=== PATIENT | male | born 1965 | race African-American/Black ===

== ENCOUNTER 2017-08-04 12:27 | Inpatient (IN) ==
--- NOTE | 2017-08-04 13:11 | Emergency Department Note ---
IMahad Gwan, am scribing for, and in the presence of, Ike Rahman MD 12:41 . ILacey James D, MD, personally performed the services described in this documentation, ascribed by Ted Tobin in my presence, and it is both accurate and complete . Arrival - Arrival Chief Complaint: Shortness of Breath ED Nursing Triage Note: Brought in by EMS c/o SOB-onset this morning. Patient is supposed to be at dialysis now, but states that he "didnt feel up to going". Mode of Arrival: Stretcher Limitations: No Limitations Source: Patient, Old Records Reviewed, RN Notes Reviewed - History of Present Illness HPI Narrative: Patient is a 51 y/o male, with a hx of NIDDM, who presents to the ED via EMS with a c/o SOB with an onset this morning. Patient stated that today is his NML dialysis day but he did not comply because he "didn't feel up to going". He confirmed that he has been sticking to his diet and that he goes to dialysis in [place]. He denies any chest pain. No other problems/complaints reported in ED. Onset (ago): hour(s) Consistency: constant Severity: moderate Allergies/Adverse Reactions: Allergies Allergy/AdvReac Type Severity Reaction Status Date / Time atorvastatin [From Lipitor] Allergy Vomiting Verified 06/28/17 17:08 Home Medications: Home Medications Medication Instructions Recorded Confirmed Type Carvedilol 12.5 mg PO BID W/MEALS 06/28/17 08/04/17 History Clopidogrel Bisulfate [Clopidogrel] 75 mg PO QAM 06/28/17 08/04/17 History Ergocalciferol (Vitamin D2) 50,000 unit PO MOFR 06/28/17 08/04/17 History [Vitamin D2] Gabapentin 600 mg PO TID 06/28/17 08/04/17 History Hydrocodone/Acetaminophen [[place] 1 each PO BID 06/28/17 08/04/17 History 10-325 Tablet] Insulin Detemir [Levemir] 20 unit SUBCUT BEDTIME 06/28/17 08/04/17 History Magnesium Chloride [Slow Mag] 64 mg PO QAM 06/28/17 08/04/17 History Omeprazole 20 mg PO QAM 06/28/17 08/04/17 History Rosuvastatin Calcium 10 mg PO QAM 06/28/17 08/04/17 History Torsemide 10 mg PO QAM 06/28/17 08/04/17 History amLODIPine [Norvasc] 10 mg PO QAM 06/28/17 08/04/17 History Albuterol Sulfate [Ventolin HFA] 2 puffs INH Q4H PRN 08/04/17 08/04/17 History Furosemide 40 mg PO TID 08/04/17 08/04/17 History Review of System - Review of System 12 point system: reviewed and no additional remarkable complaints except as stated - Review of System Constitutional: Absent: chills, fever Eyes: Absent: discharge, pain Respiratory: Present: as per HPI, other (shortness of breathe). Absent: cough Gastrointestinal: Absent: abdominal pain, nausea, vomiting, diarrhea Medical,Surgical,& Family Hx - Medical History Cardio: History of: Hypertension Endocrine: History of: Diabetes Mellitus (NIDDM) Respiratory: History of: Asthma, COPD Renal: History of: Renal Failure Musculoskeletal: History of: Back/Neck Problems Other: Comment Only: Miscellaneous Medical Problems ("rods in neck and left leg") - Surgical History Cardiac Surgeries: Sugical HX of: Cardiac Catheterization (stents) Orthopedic Surgeries: Surgical HX of;: Orthopedic Surgery - Family History Family History: Reports;: Family Diabetes, Family Heart Disease Denies;: Family Stroke - Social History Smoking Status: Never smoker Frequency of Alcohol Use: None Type of Drug Use: None Exam Physical Examination: GENERAL: This is a ill-appearing male in no apparent distress. VITAL SIGNS: HEENT: Head is normocephalic and atraumatic. Pupils are equally round and reactive to light. Extraocular movement are intact. Oropharynx is benign with moist mucous membranes. NECK: Neck is soft and supple without tenderness. There are no masses. There is no lymphadenopathy. LUNGS: Lungs are clear to auscultation bilaterally. Chest rises symmetrically. There is no chest wall tenderness. CV: Heart is regular rate and rhythm without murmurs, rubs, or gallops. ABDOMEN: Abdomen is soft, non-tender to palpation. There are no abnormal masses palpated. There is no organomegaly. Bowel sounds are present and active. SKIN: Skin is warm and dry. No rash. EXTREMITIES: Patient has full range of motion without tenderness. There is no pedal edema. NEUROLOGIC: Awake, alert, and oriented x4. Cranial nerves II through XII are grossly intact. There are no motorsensory deficits. PSYCHIATRIC: Normal affect. Normal mood. Vital Signs: Vital Signs Temperature 97.0 F L 08/04/17 12:34 Pulse Rate 91 H 08/04/17 12:34 Respiratory Rate 18 08/04/17 12:40 Blood Pressure 120/79 08/04/17 12:34 O2 Sat by Pulse Oximetry 100 08/04/17 12:34 Course - Consultations Consultation #1: Discussed with hospitalist. Patient will be admitted to their service per Time: 14:07 Results - Labs CBC & BMP: 08/04/17 12:45 Lab Results: I have reviewed the patients labs - Diagnostic Findings Procedure: Chest x-ray: image reviewed by me (No infiltrates, no pleural effusions, dialysis catheter present with the tip in the superior vena cava.) Disposition Clinical Impression: End-stage renal disease on hemodialysis, Dyspnea, Acute GI bleeding, Diabetes mellitus Case discussed with: patient Disposition: Still a Patient Condition: Critical Time of Disposition: 14:07
--- NOTE | 2017-08-04 13:43 | XRay Report ---
XR chest 1V Indication: Dyspnea, end-stage renal disease Comparison: 28 June 2017 Findings: The heart and mediastinum are stable in size and configuration. Right internal jugular catheter has been placed and tip overlies right atrium. The pulmonary vascularity is normal in caliber. No lung infiltrates, effusions, pneumothorax or other abnormality is demonstrated. Impression: Catheter position appears within normal limits. No other abnormality seen. PROCEDURE INTERPRETED AT [facility] DEPARTMENT OF RADIOLOGY Final Report Signed by: Dr. Tommy Gu
[2017-08-04 14:00] LABS: Basophils % 0.3 % (0.0-0.8); Eosinophils # 0.3 10*3/uL (0.0-0.87); Eosinophils % 5.2 % (0.00-10.9); Immature Granulocytes % 0.7 %; Immature Granulocytes Absolute 0.04 #; Lymphocytes # 1.8 10*3/uL (1.4-4.0); Lymphocytes % 31.1 % (21.2-54.2); Mean Corpuscular HGB Conc 32.7 GM/DL (32-36); Mean Corpuscular Hemoglobin 28 PG (27-34); Mean Corpuscular Volume 85.1 FL (87-102); Mean Platelet Volume 11.4 FL (9.6-12.0); Monocytes # 0.6 10*3/uL (0.11-0.8); Neutrophils # 3.1 10*3/uL (1.4-7.4); Neutrophils % 52.7 % (38.7-73.9); Platelet Count 196 T/CUMM (130-400); Red Blood Count 1.94 MC/CUMM (3.8-5.5); Red Cell Distribution Width 14.6 % (9.3-17.3); White Blood Count 5.9 T/CUMM (4-12)
[2017-08-04 14:05] LABS: Hematocrit 16.5 VOL% (42.0-52.0); Hemoglobin 5.4 GM/DL (14.0-18.0)
[2017-08-04 14:23] LABS: Alanine Aminotransferase 11 U/L (16-61); Alkaline Phosphatase 83 U/L (45-117); Aspartate Amino Transferase 11 U/L (0-37); Bilirubin,Total < 0.39 MG/DL (0.2-1.0); Blood Urea Nitrogen 43 MG/DL (7-18); Calcium 7.6 MG/DL (8.5-10.1); Glucose 222 MG/DL (74-106); Osmolality,Calculated 290.8 MOS/KG (273-304); Potassium 4.2 MMOL/L (3.5-5.1); Sodium 137 MMOL/L (136-145); Total Protein 5.5 G/DL (6.4-8.3); Troponin I Only < 0.015 NG/ML (0.00-0.045)
--- NOTE | 2017-08-04 14:41 | Hospitalist History & Physical ---
<Val Parks - Last Filed: 08/04/17 14:23> Assessment and Plan - Time spent with patient Time spent with patient: Greater than 30 minutes (1) Acute GI bleeding Status: Acute Assessment and plan: 08/04/17 Admit Anemia: H&H 5.4 & 16.5: - Nephrology consult for dialysis and blood transfusion CRF w/Hemodialysis: hemodialysis (MWF) - missed dialysis today - nephrology consult for assistance with care. Melena: Consult GI: Patient of Dr Townsend - patient reports GI scope about a year ago and resulted of GI ulcer start Protonix Diabetes: start protocol for diabetic management COPD: PRN breathing treatments Will discuss with Dr Serra for further recommendations of care. Current Visit: Yes (2) End-stage renal disease on hemodialysis Status: Acute Current Visit: Yes (3) Anemia Status: Acute Current Visit: No (4) COPD (chronic obstructive pulmonary disease) Status: Acute Current Visit: No (5) Coronary artery disease Status: Acute Current Visit: No (6) Diabetes Status: Chronic Current Visit: No History of Present Illness Chief complaint: shortness of breath History of present illness: Mr. Mahmood is a 51 year old black male w/PMHx of HTN, DM, GERD, COPD, CAD( stents 2012), gastric ulcer presented to the ED for further evaluation of 2 days worsening shortness of breath, dark tarry stools and today hematemesis. He reports suppose to have regular dialysis today at [facility] but felt too short of breath to go to dialysis. He reports decreased in appetite for a couple of months. He denies chest pain, fever, or chills. IN ED: LABS: H&H 5.4 and 16.5. BNP 127, BUN & Creatinine 43 & 5.50 (CRF on hemodialysis), Glucose 222, Calcium 7.6. CXR: nothing acute. Patient denies smoking, alcohol use, or drug use. He does not take the Flu Vaccine. He ambulates without a walker or cane. PCP: Dr Porter ([place]) Renal: Dr Gutierrez Cardiology: Dr Dickerson GI: Dr Townsend After discussion with Dr Rahman in the ED and Dr Serra with Hospital Medicine, it was agreed to admit patient and consult nephrology for assistance with care. Home medications to be reviewed and reconciliation to follow. Home Medications Medication Instructions Recorded Confirmed Type Carvedilol 12.5 mg PO BID W/MEALS 06/28/17 08/04/17 History Clopidogrel Bisulfate [Clopidogrel] 75 mg PO QAM 06/28/17 08/04/17 History Ergocalciferol (Vitamin D2) 50,000 unit PO MOFR 06/28/17 08/04/17 History [Vitamin D2] Gabapentin 600 mg PO TID 06/28/17 08/04/17 History Hydrocodone/Acetaminophen [[place] 1 each PO BID 06/28/17 08/04/17 History 10-325 Tablet] Insulin Detemir [Levemir] 20 unit SUBCUT BEDTIME 06/28/17 08/04/17 History Magnesium Chloride [Slow Mag] 64 mg PO QAM 06/28/17 08/04/17 History Omeprazole 20 mg PO QAM 06/28/17 08/04/17 History Rosuvastatin Calcium 10 mg PO QAM 06/28/17 08/04/17 History Torsemide 10 mg PO QAM 06/28/17 08/04/17 History amLODIPine [Norvasc] 10 mg PO QAM 06/28/17 08/04/17 History Albuterol Sulfate [Ventolin HFA] 2 puffs INH Q4H PRN 08/04/17 08/04/17 History Furosemide 40 mg PO TID 08/04/17 08/04/17 History Allergies Allergy/AdvReac Type Severity Reaction Status Date / Time atorvastatin [From Lipitor] Allergy Vomiting Verified 06/28/17 17:08 Medical,Surgical,& Family Hx - Medical History Cardio: History of: Hypertension Endocrine: History of: Diabetes Mellitus (NIDDM) Respiratory: History of: Asthma, COPD Renal: History of: Renal Failure Musculoskeletal: History of: Back/Neck Problems Other: Comment Only: Miscellaneous Medical Problems ("rods in neck and left leg") - Surgical History Cardiac Surgeries: Sugical HX of: Cardiac Catheterization (stents, 2013) Orthopedic Surgeries: Surgical HX of;: Orthopedic Surgery - Family History Family History: Reports;: Family Diabetes, Family Heart Disease Denies;: Family Stroke - Social History Smoking Status: Never smoker Frequency of Alcohol Use: None Type of Drug Use: None Marital Status: Single Lives With:: Parent (he lives with his 80 year old parents and a friend) Functional capacity: independent ambulation 12 point system: reviewed and no additional remarkable complaints except as stated - Constitutional Constitutional: Present: fatigue, other (decrease in appetite x2 months). Absent: chills, fever(s) - Cardiovascular Cardiovascular: Present: dyspnea, dyspnea on exertion. Absent: chest pain at rest, chest pain with activity, edema - Respiratory Respiratory: Present: dyspnea, dyspnea on exertion. Absent: cough, wheezing - Gastrointestinal Gastrointestinal: Present: hematemesis, hematochezia, nausea, vomiting. Absent : abdominal pain Exam - Constitutional Vitals: Period Temp Pulse Resp BP Sys/Moss Pulse Ox Last 24 Hr 97.0 F-97.0 F 85-91 18-20 95-120/70-83 100-100 General appearance: normal weight, no acute distress - Head Head exam: Present: normal inspection - Eye Eye exam: Present: EOMI Pupils: Present: DOUG - Neck Neck exam: Present: normal inspection. Absent: thyromegaly - Respiratory Respiratory exam: Present: clear to auscultation bilaterally. Absent: rales, rhonchi, stridor, wheezes - Cardiovascular Cardiovascular exam: Present: regular rate and rhythm - GI/Abdominal GI/Abdominal exam: Present: normal bowel sounds, soft. Absent: firm, guarding, tenderness, rebound - Extremities Exam Extremities exam: Present: normal inspection, full ROM. Absent: edema - Neurological Exam Neurological exam: Present: alert, oriented X3, CN II-XII intact - Psychiatric Psychiatric exam: Present: normal affect, normal mood. Absent: agitated, anxious - Skin Skin exam: Present: normal color, warm, dry Results - Labs CBC & BMP: 08/04/17 12:45 Lab Results: I have reviewed the past 24 hour labs - Diagnostic Findings Procedure: Chest x-ray: report reviewed by me (nothing acute, dialysis catheter tip in appropriate position) <Keturah Serra - Last Filed: 08/04/17 17:02> History of Present Illness History of present illness: Patient seen and examined independently of EMERGENCY MEDICINE SPECIALIST Parks, agree with history, assessment and plan as documented. Patient presents with sob, reports dark colored stools. Hemoglobin is 5. Missed HD today. Will transfuse 2 units PRBCs. Might require more, hopefully can be done on HD tomorrow. GI and Nephrology consulted. Exam - Constitutional Vitals: Period Temp Pulse Resp BP Sys/Moss Pulse Ox Last 24 Hr 97.0 F-98.1 F 85-94 16-20 95-121/70-83 98-100 Results - Labs CBC & BMP: 08/04/17 12:45 08/04/17 12:45
--- NOTE | 2017-08-04 14:44 | EKG Report ---
Stationary ECG Study [facility] ER Test Date: 08/04/2017 12:36:59 PM Pat Name: LEYDA FRAIRE Department: Room: EDWAIT Gender: M Bag Repairer: : 1965 Requested by: Ike Main Order Number: [id number] Reading MD: HIPOLITO CAI Intervals [place] Rate: 87 P: -24 SD: 164 QRS: 103 QRSD: 106 T: 258 QT: 402 QTc: 446 Interpretive Statements SINUS RHYTHM MARKED RIGHT AXIS DEVIATION ST DEVIATION AND MODERATE T-WAVE ABNORMALITY, CONSIDER ANTEROLATERAL ISCHEMIA ST DEVIATION AND MODERATE T-WAVE ABNORMALITY, CONSIDER INFERIOR ISCHEMIA Electronically Signed On 08-07-17 17:09:49 CDT by HIPOLITO CAI [email or web address]
[2017-08-04 14:45] LABS: INR 1.1; PT Patient Result 11.5 SECS
[2017-08-04] MEDS ORDERED: DEXTROSE 50% 25 GM/50 ML SYRINGE IV PRN (15:08)
[2017-08-04] MEDS ORDERED: GLUCAGON 1 MG VIAL IM PRN (15:08)
[2017-08-04] MEDS ORDERED: ACETAMINOPHEN 325 MG TABLET PO PRN (15:08)
[2017-08-04] MEDS ORDERED: ONDANSETRON 4 MG/2 ML VIAL IV PRN (15:08)
[2017-08-04] MEDS ORDERED: ALBUTEROL/IPRATROPIUM 3 ML NEB RESP TX PRN (15:12)
[2017-08-04] MEDS ORDERED: SODIUM CHLORIDE 0.9% 250 ML IV PRN (16:51)
[2017-08-04] MEDS: INSULIN LISPRO 100 UNIT/ML SUBCUT SCH ×2 (17:16→21:59)
[2017-08-04] MEDS: FUROSEMIDE 40 MG TABLET PO SCH (21:58)
[2017-08-04] MEDS: INSULIN GLARGINE 100 UNIT/ML SUBCUT SCH (21:59)
[2017-08-05 06:03] LABS: Basophils # 0.1 10*3/uL (0.0-0.2); Basophils % 1.1 % (0.0-0.8); Eosinophils # 0.2 10*3/uL (0.0-0.87); Hematocrit 19.8 VOL% (42.0-52.0); Immature Granulocytes % 0.6 %; Immature Granulocytes Absolute 0.04 #; Mean Corpuscular HGB Conc 33.8 GM/DL (32-36); Mean Corpuscular Hemoglobin 30 PG (27-34); Mean Corpuscular Volume 87.6 FL (87-102); Mean Platelet Volume 11.5 FL (9.6-12.0); Monocytes # 0.7 10*3/uL (0.11-0.8); Monocytes % 10.4 % (1.7-12.7); NRBC # 0.02 10*3/uL; Neutrophils # 3.6 10*3/uL (1.4-7.4); Neutrophils % 54.9 % (38.7-73.9); Red Blood Count 2.26 MC/CUMM (3.8-5.5); Red Cell Distribution Width 14.2 % (9.3-17.3); White Blood Count 6.6 T/CUMM (4-12)
[2017-08-05 06:28] LABS: Hemoglobin 6.7 GM/DL (14.0-18.0)
[2017-08-05 06:29] LABS: Platelet Count 152 T/CUMM (130-400)
[2017-08-05 06:56] LABS: Osmolality,Calculated 305.4 MOS/KG (273-304); Potassium 4.3 MMOL/L (3.5-5.1)
--- NOTE | 2017-08-05 07:11 | Gastrointestinal Consult Note ---
Assessment and Plan (1) Erosive gastritis with hemorrhage Status: Acute Assessment and plan: This patient has had multiple episodes of punctate erosive gastritis with melena and has been cut back on the proton pump inhibition to omeprazole once daily, if he is going to remain on Plavix he will likely need pantoprazole twice daily and not to be dropped back to omeprazole. He has been examined and biopsied as recently as last year in March, the patient is also had erosive esophagitis in the past 3 years ago on evaluation by Dr. Houston in [facility]. He does not require repeat upper endoscopy in my opinion. I would keep him on oral pantoprazole and start to feed him and see how he does with retention of his blood. Would hold off on Plavix for the next 1 week, to allow the stomach a chance to heal. Current Visit: Yes (2) Acute posthemorrhagic anemia Status: Acute Assessment and plan: Agree with transfusion. I would strongly suggest getting another 2 units of packed red blood cells on dialysis today. He is currently only up to 19.8%. Like to see him closer to 24%-- his baseline is 35.2% and 11.7 g/dL back in February 2016 Current Visit: Yes (3) Diarrhea Status: Acute Assessment and plan: The patient does have diarrhea and is been ongoing problem for him. He was scoped back [place] [address] Cortez and so technically speaking he does not require repeat colonoscopy for colorectal cancer screening purposes until 2021 however because of his diarrhea that might be helpful to rule out microscopic and collagenous colitis. This could certainly be done electively as an outpatient once he is released from the hospital stay after follow-up in my office in another 6 weeks. He will need to be on Protonix 40 mg twice daily upon discharge and as mentioned again avoid Plavix for the next 1 week after he goes home. He can likely be discharged when you feel he is stable. There is no reason not to restart his diet at this point. Current Visit: Yes (4) Gastroparesis Status: Chronic Assessment and plan: We have been avoiding treatment of his gastroparesis as long as he is maintaining his weight due to the fact that the motility enhancement would worsen his diarrhea. Current Visit: No History of Present Illness Chief complaint: Melena, anemia with hematocrit down to 16.5% and 5.4 g/dL. History of present illness: Mr. Mahmood is a 51 year old male who is well known to me from previous office visits going back to 2013 when the patient had been scoped by Dr. Houston demonstrating LA class B esophagitis small hiatal hernia and antral gastritis after he developed hematemesis and GERD back on 05/02/14. The patient had been seen back at [facility] by Dr. Cortez back in the 2011 time frame at which time his last colonoscopy had been done which may have had biopsies done, we do not know. This patient has had occasional hematemesis and bleeding from the upper GI tract on several occasions I had seen him last and scoped him at the [facility] on 03/30/16 at which time he had a small amount of retained food in the stomach but a normal-appearing esophagus with a 2 cm hiatal hernia and diffuse erosive gastritis with biopsies taken were negative for Helicobacter pylori. The patient had been started on pantoprazole and a panel was done for celiac sprue given the patient's diarrhea which varies anywhere between 0 bowel movements per day and 7-8 bowel movements per day. We can never tell what he is going to get that day and so he does not treat this with much although has been treated with Lomotil and Imodium in the past. He will likely require repeat colonoscopy in the next several months to investigate this further. Patient states that he started having black stools again 2-3 weeks ago. The patient has been on Plavix for several years now and does take omeprazole once a day for his acid suppressing medication. He had been on Protonix but apparently has got decreased to this last expensive medication. Over the last 1-2 days the patient has been having syncopal and near syncopal episodes. His has followed behind him when he is felt dizzy enough to black out, apparently the patient has very little warning when this is occurring. He has not been able to go to dialysis for full periods of time due to the low volume and so presented to the emergency room yesterday after being sent from dialysis with hematocrit and hemoglobin of 16.5% and 5.4 g/dL respectively. He feels better after getting transfused yesterday. He is still having black stools. I strongly suspect this is from the punctate erosive gastritis as it has been in the past and possibly recurrence of esophagitis. He does not sound like he is having [place] tear as he is not having nausea or vomiting. He does have epigastric tenderness. Although he is having black stools his diarrhea is not giving him significant problems lately. Again biopsies have not shown any Helicobacter pylori, and the celiac sprue antibody panel was negative on 03/30/16. Home Medications Medication Instructions Recorded Confirmed Type Carvedilol 12.5 mg PO BID W/MEALS 06/28/17 08/04/17 History Clopidogrel Bisulfate [Clopidogrel] 75 mg PO QAM 06/28/17 08/04/17 History Ergocalciferol (Vitamin D2) 50,000 unit PO MOFR 06/28/17 08/04/17 History [Vitamin D2] Gabapentin 600 mg PO TID 06/28/17 08/04/17 History Hydrocodone/Acetaminophen [[place] 1 each PO BID 06/28/17 08/04/17 History 10-325 Tablet] Insulin Detemir [Levemir] 20 unit SUBCUT BEDTIME 06/28/17 08/04/17 History Magnesium Chloride [Slow Mag] 64 mg PO QAM 06/28/17 08/04/17 History Omeprazole 20 mg PO QAM 06/28/17 08/04/17 History Rosuvastatin Calcium 10 mg PO QAM 06/28/17 08/04/17 History Torsemide 10 mg PO QAM 06/28/17 08/04/17 History amLODIPine [Norvasc] 10 mg PO QAM 06/28/17 08/04/17 History Albuterol Sulfate [Ventolin HFA] 2 puffs INH Q4H PRN 08/04/17 08/04/17 History Furosemide 40 mg PO TID 08/04/17 08/04/17 History Allergies Allergy/AdvReac Type Severity Reaction Status Date / Time atorvastatin [From Lipitor] Allergy Mild Vomiting Verified 08/04/17 17:37 Medical,Surgical,& Family Hx - Medical History Cardio: History of: Hypertension Endocrine: History of: Diabetes Mellitus (NIDDM) Respiratory: History of: Asthma, COPD Renal: History of: Renal Failure, Renal Problems (Dialysis M/W/F) Musculoskeletal: History of: Back/Neck Problems, Musculoskeletal Problems ( Arthritis) Other: Comment Only: Miscellaneous Medical Problems ("rods in neck and left leg") - Surgical History Cardiac Surgeries: Sugical HX of: Cardiac Catheterization (, 2013) Orthopedic Surgeries: Surgical HX of;: Orthopedic Surgery (Rods in Neck and Leg) - Family History Family History: Reports;: Family Diabetes, Family Heart Disease Denies;: Family Stroke - Social History Smoking Status: Never smoker Frequency of Alcohol Use: None Type of Drug Use: None Review of systems: Constitutional: Denies fever, chills, nausea, and vomiting Eyes: Denies dry eyes, and scleral icterus HENT: Denies headaches Cardiovascular: Denies acute chest pain and claudication Respiratory: Denies shortness of breath, wheezing, and difficulty breathing, denies cough Gastrointestinal: As noted in the HPI Genitourinary: Denies dysuria and hematuria Neurologic: Denies vision loss, and loss of sensation Musculoskeletal: He does have some joint swelling, joint stiffness, and muscular weakness Psychiatric: Denies depression and jameson symptoms Heme-Lymph: Denies easy bruising, lymph node enlargement or tenderness, night sweats, excessive bleeding Allergies-immunologic: Denies pruritus and rhinorrhea Exam - Constitutional Vitals: Period Temp Pulse Resp BP Sys/Moss Pulse Ox Last 24 Hr 97.0 F-98.9 F 85-103 16-20 95-125/67-85 98-100 Exam: Constitutional: Well-developed, well-nourished, alert, and in no acute distress Head and face: Head: Normocephalic atraumatic Eyes: Conjunctiva without injection, no gross scleral icterus, pupils equal and round bilaterally Ears: Intact to conversation in both ears Nose: External appearance is normal, nares patent Mouth: Oral mucous membranes moist without erythema the patient is edentulous without dentures in place Neck: Normal appearance, no masses or tenderness, trachea midline Thyroid: Gland midline and appropriate size for age Respiratory: Normal respiratory effort, clear to auscultation without wheezes, rhonchi or rales Cardiovascular: Regular rate and rhythm, normal S1, S2, the exam is without rubs, murmurs or gallops. Right chest shunt noted Gastrointestinal: Minimal epigastric tenderness to palpation, normal active bowel sounds, tone normal without rigidity or guarding, no masses present , no hepatomegaly, no spleen tip felt. No rectal exam obtained. Lymphatic: Neck without adenopathy, axilla without lymphadenopathy present Musculoskeletal: Right and left lower extremities without evidence of edema Skin and subcutaneous tissue: No rashes or ulcerations noted, normal skin turgor, digits and nails without clubbing/cyanosis/deformities. Neurologic: The patient is grossly oriented to person place and time, cranial nerves show tongue movements are normal with normal tongue extrusion midline, light touch sensation is intact. Psychiatric: No hallucinations or delusions are present, does not appear depressed Results - Labs CBC & BMP: 08/05/17 04:52 08/05/17 04:51
[2017-08-05] MEDS: FUROSEMIDE 40 MG TABLET PO SCH (08:36)
[2017-08-05] MEDS: MAGNESIUM CHLORIDE 64 MG TABLET PO SCH (08:36)
[2017-08-05] MEDS: PANTOPRAZOLE 40 MG TABLET PO SCH ×2 (08:37→20:24)
[2017-08-05] MEDS: INSULIN LISPRO 100 UNIT/ML SUBCUT SCH ×4 (08:37→20:26)
[2017-08-05] MEDS ORDERED: PANTOPRAZOLE 40 MG TABLET PO SCH (09:00)
[2017-08-05] MEDS ORDERED: ALBUTEROL 2.5 MG/3 ML NEB RESP TX PRN (11:52)
[2017-08-05] MEDS ORDERED: amLODIPine 10 MG TABLET PO SCH (12:00)
[2017-08-05] MEDS ORDERED: NON-FORMULARY MEDICATION (Omeprazole [Omeprazole] 20 MG) PO SCH (12:00)
--- NOTE | 2017-08-05 12:31 | Nephrology Consult Note ---
History of Present Illness Chief complaint: esrd History of present illness: Mr. Mahmood is a 51 year old male who has been dialyzing for about a month and presented with melena. He has a long history of gas and has been taking Plavix since stents were placed by Dr. Foster in about 2012. He noted melena yesterday and then some hematemesis as well. He had orthostatic hypotension yesterday and had a hematocrit of 16%. His potassium is currently not a problem at 4.3. On exam his chest is clear his heart without rub or gallop he has a dialysis catheter in his right infraclavicular area he has no peripheral edema. Impression end-stage renal disease #2 GI bleed #3 symptomatic anemia secondary to the GI bleed Plan hemodialysis today in order to give 2 units of packed red cells in addition to the 2 units he has had already. His current hematocrit is 20 after the 2 unit transfusion. Home Medications Medication Instructions Recorded Confirmed Type Carvedilol 12.5 mg PO BID W/MEALS 06/28/17 08/04/17 History Clopidogrel Bisulfate [Clopidogrel] 75 mg PO QAM 06/28/17 08/04/17 History Ergocalciferol (Vitamin D2) 50,000 unit PO MOFR 06/28/17 08/04/17 History [Vitamin D2] Gabapentin 600 mg PO TID 06/28/17 08/04/17 History Hydrocodone/Acetaminophen [[place] 1 each PO BID 06/28/17 08/04/17 History 10-325 Tablet] Insulin Detemir [Levemir] 20 unit SUBCUT BEDTIME 06/28/17 08/04/17 History Magnesium Chloride [Slow Mag] 64 mg PO QAM 06/28/17 08/04/17 History Omeprazole 20 mg PO QAM 06/28/17 08/04/17 History Rosuvastatin Calcium 10 mg PO QAM 06/28/17 08/04/17 History Torsemide 10 mg PO QAM 06/28/17 08/04/17 History amLODIPine [Norvasc] 10 mg PO QAM 06/28/17 08/04/17 History Albuterol Sulfate [Ventolin HFA] 2 puffs INH Q4H PRN 08/04/17 08/04/17 History Furosemide 40 mg PO TID 08/04/17 08/04/17 History Allergies Allergy/AdvReac Type Severity Reaction Status Date / Time atorvastatin [From Lipitor] Allergy Mild Vomiting Verified 08/04/17 17:37 Medical,Surgical,& Family Hx - Medical History Cardio: History of: Hypertension Endocrine: History of: Diabetes Mellitus (NIDDM) Respiratory: History of: Asthma, COPD Renal: History of: Renal Failure, Renal Problems (Dialysis M/W/F) Musculoskeletal: History of: Back/Neck Problems, Musculoskeletal Problems ( Arthritis) Other: Comment Only: Miscellaneous Medical Problems ("rods in neck and left leg") - Surgical History Cardiac Surgeries: Sugical HX of: Cardiac Catheterization (stents, 2013) Orthopedic Surgeries: Surgical HX of;: Orthopedic Surgery (Rods in Neck and Leg) - Family History Family History: Reports;: Family Diabetes, Family Heart Disease Denies;: Family Stroke - Social History Smoking Status: Never smoker Frequency of Alcohol Use: None Type of Drug Use: None Review of Systems 12 point system: reviewed and no additional remarkable complaints except as stated Exam - Vital Signs Vital signs: Period Temp Pulse Resp BP Sys/Moss Pulse Ox Last 24 Hr 97.0 F-98.9 F 85-103 16-20 95-125/67-85 98-100 - General Appearance General appearance: well-developed, well-nourished, appears started age EENT: ATNC Neck: no JVD, no thyromegaly, no carotid bruit, supple Respiratory: no kyphosis, no scoliosis Gastrointestinal: normoactive bowel sounds Integumentary: no rash, warm and dry Neurologic: no focal deficit, no asterixis, alert and oriented x3, reflexes 2+ and symmetric, gait normal, strength 5/5 Musculoskeletal: no deformities, no erythema, no cyanosis, no clubbing Psychiatric: mood/affect appropriate, cooperative Results - Labs CBC & BMP: 08/05/17 04:52 08/05/17 04:51 Assessment and Plan (1) End-stage renal disease on hemodialysis Status: Acute Assessment and plan: Hemodialysis today. Current Visit: Yes (2) Diabetes Status: Chronic Current Visit: No Specialty Discharge - Follow Up or Referrals - Speciality Discharge Instructions Nephrology Instructions: Hemodialysis today and transfuse 2 more units of packed red cells on dialysis.
[2017-08-05] MEDS ORDERED: SODIUM CHLORIDE 0.9% 250 ML IV PRN (12:33)
--- NOTE | 2017-08-05 13:20 | Hospitalist Progress Note ---
Assessment and Plan - Time spent with patient Time spent with patient: Less than 30 minutes (1) Gastroparesis Status: Chronic Assessment and plan: 51-year-old -[place] male with history of hypertension, end-stage renal disease on hemodialysis, diabetes, GERD, COPD, CAD with stents, and gastric ulcer admitted by the hospitalist on 08/04/2017 with acute GI bleeding. Patient has received 2 units of blood and his posttransfusion H&H is now 6.7/19.8. He is having dialysis today and he will receive 2 more units on dialysis per Dr. Hughes. Dr. Townsend from GI has seen the patient and he is recommending holding the Plavix at least for 1 week and him continuing Protonix 40 mg twice daily from now on. He is not recommending C scope or EGD at this time. Dr. Hughes is also recommending stopping Plavix altogether because it was started for stents placed in 2012. Patient's blood pressures are normal and we are holding his blood pressure medications at this time. Dr. Sanchez will see and examine patient and further recommendations to follow. Current Visit: No (2) Diabetes Status: Chronic Current Visit: No (3) COPD (chronic obstructive pulmonary disease) Status: Acute Current Visit: No (4) Coronary artery disease Status: Acute Current Visit: No (5) Anemia Status: Acute Current Visit: No (6) Acute GI bleeding Status: Acute Current Visit: Yes Hospitalist: Subjective Interval history: Patient states he feels okay today. He did have a bowel movement this morning with some red and dark tarry stool. He is supposed to dialyze on Wednesday, Wednesday, and Wednesday but he did miss dialysis yesterday. Exam - Constitutional Vitals: Period Temp Pulse Resp BP Sys/Moss Pulse Ox Last 24 Hr 97.4 F-98.9 F 85-108 16-20 95-131/67-85 100-100 Exam: 51-year-old -[place] male, no acute distress, alert and oriented Chest clear, clean HD catheter right chest wall with sutures intact CV regular rate and rhythm Abdomen soft and nontender Extremities no edema Results - Labs CBC & BMP: 08/05/17 04:52 08/05/17 04:51 Lab Results: I have reviewed the past 24 hour labs
[2017-08-05] MEDS ORDERED: HEPARIN 10,000 UNIT/10 ML VIAL IV PRN (14:18)
--- NOTE | 2017-08-05 14:51 | Dialysis Note ---
Dialysis Note - Dialysis Note Mr. Mahmood is seen during his hemodialysis which is tolerating well. He will be receiving 2 units packed red cells which should result in adequate replacement. Since his stents have been in 3-4 years I think it is fine to discontinue his Plavix in view of his GI bleed
[2017-08-05] MEDS: TORSEMIDE 20 MG TABLET PO SCH (17:22)
[2017-08-05] MEDS: GABAPENTIN 600 MG TABLET PO SCH ×2 (17:22→20:24)
[2017-08-06] MEDS: INSULIN GLARGINE 100 UNIT/ML SUBCUT SCH ×2 (02:13→20:56)
[2017-08-06 08:48] LABS: Basophils # 0.1 10*3/uL (0.0-0.2); Basophils % 1.6 % (0.0-0.8); Eosinophils # 0.4 10*3/uL (0.0-0.87); Eosinophils % 6.3 % (0.00-10.9); Hematocrit 25.2 VOL% (42.0-52.0); Hemoglobin 8.6 GM/DL (14.0-18.0); Immature Granulocytes % 0.5 %; Immature Granulocytes Absolute 0.03 #; Lymphocytes # 1.6 10*3/uL (1.4-4.0); Lymphocytes % 28.7 % (21.2-54.2); Mean Corpuscular HGB Conc 34.1 GM/DL (32-36); Mean Corpuscular Hemoglobin 30 PG (27-34); Mean Corpuscular Volume 87.8 FL (87-102); Mean Platelet Volume 11.4 FL (9.6-12.0); Monocytes # 0.6 10*3/uL (0.11-0.8); Monocytes % 10.8 % (1.7-12.7); Neutrophils # 2.9 10*3/uL (1.4-7.4); Neutrophils % 52.1 % (38.7-73.9); Platelet Count 168 T/CUMM (130-400); Red Cell Distribution Width 14.1 % (9.3-17.3); White Blood Count 5.6 T/CUMM (4-12)
[2017-08-06 09:03] LABS: Red Blood Count 2.87 MC/CUMM (3.8-5.5)
--- NOTE | 2017-08-06 09:04 | Nephrology Progress Note ---
Nephrology - PN: Subj Interval history: Mr. Mahmood seen in follow-up of his end-stage renal disease and presentation with severe anemia. He is received 4 units packed red cells since admission and a hematocrit is pending today. He is in no distress though feels quite well posttransfusion. Our plan is to continue with his dialysis per usual schedule. We can transfuse on dialysis as necessary but hopefully his bleeding has stopped. Exam (PN)-Nephrology - Vital Signs Vital signs: Period Temp Pulse Resp BP Sys/Moss Pulse Ox Last 24 Hr 96.2 F-97.9 F 80-108 18-20 110-131/70-83 98-100 - Lab 08/06/17 04:42 08/05/17 04:51 Most recent lab results Calcium 8.0 MG/DL (8.5-10.1) L 08/05/17 04:51 Magnesium 1.9 MG/DL (1.8-2.4) 08/06/17 04:45 Assessment and Plan (1) End-stage renal disease on hemodialysis Status: Acute Assessment and plan: Hemodialysis today. Current Visit: Yes (2) Diabetes Status: Chronic Current Visit: No
[2017-08-06] MEDS: PANTOPRAZOLE 40 MG TABLET PO SCH ×2 (09:11→20:54)
[2017-08-06] MEDS: GABAPENTIN 600 MG TABLET PO SCH ×3 (09:11→20:53)
[2017-08-06] MEDS: MAGNESIUM CHLORIDE 64 MG TABLET PO SCH (09:11)
[2017-08-06] MEDS: TORSEMIDE 20 MG TABLET PO SCH (09:11)
[2017-08-06] MEDS: INSULIN LISPRO 100 UNIT/ML SUBCUT SCH ×4 (09:12→20:54)
--- NOTE | 2017-08-06 09:27 | Gastrointestinal Progress Note ---
Assessment and Plan (1) Erosive gastritis with hemorrhage Status: Acute Assessment and plan: This patient has had multiple episodes of punctate erosive gastritis with melena and has been cut back on the proton pump inhibition to omeprazole once daily, if he is going to remain on Plavix he will likely need pantoprazole twice daily and not to be dropped back to omeprazole. He has been examined and biopsied as recently as last year in March, the patient is also had erosive esophagitis in the past 3 years ago on evaluation by Dr. Houston in [facility]. He does not require repeat upper endoscopy in my opinion. I would keep him on oral pantoprazole and start to feed him and see how he does with retention of his blood. Would hold off on Plavix for the next 1 week, to allow the stomach a chance to heal. 08/06/17--The patient is complaining of black stools and some bright red blood per rectum. Again note that this patient has had previous upper endoscopy done back in March 2016 with erosive esophagitis and punctate gastritis thought to be a source of bleeding. He is on Protonix twice daily. His hematocrit has certainly improved from yesterday going from 19.8%-->25.2%. I do not suspect this is active bleeding but probably the patient may have some equilibration and purging of blood that he had previously digested. If more significant bleeding is seen on a tagged red blood cell scan today would likely repeat upper endoscopy later on today or perhaps with Dr. Becerra tomorrow for the weekend. Current Visit: Yes (2) Acute posthemorrhagic anemia Status: Acute Assessment and plan: Agree with transfusion. I would strongly suggest getting another 2 units of packed red blood cells on dialysis today. He is currently only up to 19.8%. Like to see him closer to 24%-- his baseline is 35.2% and 11.7 g/dL back in February 2016. 08/06/17--The patient is doing adequately at this time, his hematocrit has improved certainly posttransfusion. We will continue to watch him and get a tagged red blood cell scan today to see if there is active bleeding that needs to be addressed before the weekend is over. Current Visit: Yes (3) Diarrhea Status: Acute Assessment and plan: The patient does have diarrhea and is been ongoing problem for him. He was scoped back [place] [address] Cortez and so technically speaking he does not require repeat colonoscopy for colorectal cancer screening purposes until 2021 however because of his diarrhea that might be helpful to rule out microscopic and collagenous colitis. This could certainly be done electively as an outpatient once he is released from the hospital stay after follow-up in my office in another 6 weeks. He will need to be on Protonix 40 mg twice daily upon discharge and as mentioned again avoid Plavix for the next 1 week after he goes home. He can likely be discharged when you feel he is stable. There is no reason not to restart his diet at this point. 08/06/17--Patient states that he is having some bright red blood per rectum. We might want to schedule him for colonoscopy on Wednesday if he is continuing to bleed. Otherwise this can be put off for a bit given the previous colonoscopy done [address] Cortez which basically ruled out colorectal cancer back in 2011. If tagged red blood cell scan shows active bleeding elsewhere in the GI tract appears to be in the colon we can certainly prep him and address this. Current Visit: Yes (4) Gastroparesis Status: Chronic Assessment and plan: We have been avoiding treatment of his gastroparesis as long as he is maintaining his weight due to the fact that the motility enhancement would worsen his diarrhea. 08/06/17--as noted above. Current Visit: No Gastroenterology - PN: Subj Interval history: Patient states that he is having some black and red stools at this time. He is just gotten transfused. I am going to ask that the bleeding scan be done to help identify where the bleeding appears to be coming from. Will have my partner, Dr. Becerra, look in on this patient over the weekend--if the bleeding scan is grossly positive we may do a EGD before I leave today, or tomorrow with Dr. Becerra. Exam (Progress Note) - Constitutional Vitals: Period Temp Pulse Resp BP Sys/Moss Pulse Ox Last 24 Hr 96.2 F-97.9 F 80-108 18-20 110-131/70-83 98-100 General appearance: normal weight - Head Head exam: Present: normocephalic - Eye Eye exam: Present: EOMI - Respiratory Respiratory exam: Present: clear to auscultation bilaterally. Absent: rhonchi, stridor, wheezes - Cardiovascular Cardiovascular exam: Present: regular rate and rhythm - GI/Abdominal GI/Abdominal exam: Present: normal bowel sounds, soft. Absent: ascites, distended, guarding, tenderness, rebound - Neurological Exam Neurological exam: Present: alert, oriented X3 Results - Labs CBC & BMP: 08/06/17 04:42 08/05/17 04:51
[2017-08-06] MEDS ORDERED: ERGOCALCIFEROL 50,000 UNIT CAPSULE PO SCH (11:52)
--- NOTE | 2017-08-06 12:51 | Nuclear Medicine Report ---
GI Bleeding Study Date Performed: 08/06/2017 Radiopharmaceutical: 20 mCi Tc-99m PYP labeled RBCs I.V. Clinical Information: 51-year-old male with known history of erosive esophagitis and negative colonoscope approximately 5 years ago continues to have some reports of melanoma and right red blood per rectum. Hematocrit has dropped from 35 to 20 but repeat endoscopy has not yet been performed. Patient is not acutely hypotensive and recent packed red cell transfusion demonstrates appropriate rise in hematocrit. Comparison: None available Technique: Dynamic images of the abdomen and pelvis were obtained at 1 minute frames for 5 minutes and 5 minute frames for 60 minutes. Findings: Normal distribution of radiopharmaceutical is noted on the perfusion images. There is no obvious focus of active bleeding within the abdomen/pelvis. Delayed images do not demonstrate abnormal radiotracer within bowel lumen. Curvilinear activity in the upper abdomen may represent deposition within the gastric mucosa but is otherwise indeterminant. Conclusion: No scintigraphic evidence of acute GI bleed. PROCEDURE INTERPRETED AT [facility] DEPARTMENT OF RADIOLOGY Final Report Signed by: Flex Arora
--- NOTE | 2017-08-06 14:29 | Hospitalist Progress Note ---
Assessment and Plan - Time spent with patient Time spent with patient: Less than 30 minutes (1) Gastroparesis Status: Chronic Assessment and plan: 51-year-old -[place] male with history of hypertension, end-stage renal disease on hemodialysis, diabetes, GERD, COPD, CAD with stents, and gastric ulcer admitted by the hospitalist on 08/04/2017 with acute GI bleeding. Patient has received 2 units of blood and his posttransfusion H&H is now 6.7/19.8. He is having dialysis today and he will receive 2 more units on dialysis per Dr. Hughes. Dr. Townsend from GI has seen the patient and he is recommending holding the Plavix at least for 1 week and him continuing Protonix 40 mg twice daily from now on. He is not recommending C scope or EGD at this time. Dr. Hughes is also recommending stopping Plavix altogether because it was started for stents placed in 2012. Patient's blood pressures are normal and we are holding his blood pressure medications at this time. Dr. Sanchez will see and examine patient and further recommendations to follow. 08/06/2017 patient feels good today though he did have further GI bleeding. His H&H is stable at 8.6/25.2. Will recheck some labs in the morning. Patient did receive 2 units of blood on HD yesterday. His bleeding scan done this morning shows no evidence of active bleeding. Dr. Townsend is following and states he may end up doing C scope on Wednesday if patient continues to bleed. We will transfuse as needed through the weekend. If patient stops bleeding he can be sent home. Patient was put on Plavix status post heart stents in 2012. Will discuss that Plavix most likely does not need to be restarted with his history of GI bleeding as well. Patient is afebrile and his vital signs are stable his blood sugars have been okay. Dr. Sanchez will see and examine patient and further recommendations to follow. Current Visit: No (2) Diabetes Status: Chronic Current Visit: No (3) COPD (chronic obstructive pulmonary disease) Status: Acute Current Visit: No (4) Coronary artery disease Status: Acute Current Visit: No (5) Anemia Status: Acute Current Visit: No (6) Acute GI bleeding Status: Acute Current Visit: Yes Hospitalist: Subjective Interval history: Patient feels okay. He has no complaints of pain. He has had another large bowel movement with blood. Exam - Constitutional Vitals: Period Temp Pulse Resp BP Sys/Moss Pulse Ox Last 24 Hr 96.2 F-98.1 F 80-96 18-20 110-130/70-82 98-100 Exam: 51-year-old -[place] male, no acute distress, alert and oriented Chest clear, clean HD catheter right chest wall with sutures intact CV regular rate and rhythm Abdomen soft and nontender Extremities no edema Results - Labs CBC & BMP: 08/06/17 04:42 08/05/17 04:51 Lab Results: I have reviewed the past 24 hour labs
[2017-08-07 04:59] LABS: Basophils # 0.1 10*3/uL (0.0-0.2); Basophils % 1.2 % (0.0-0.8); Eosinophils # 0.4 10*3/uL (0.0-0.87); Eosinophils % 6.5 % (0.00-10.9); Hematocrit 25.6 VOL% (42.0-52.0); Hemoglobin 8.7 GM/DL (14.0-18.0); Immature Granulocytes % 0.3 %; Immature Granulocytes Absolute 0.02 #; Lymphocytes # 1.7 10*3/uL (1.4-4.0); Lymphocytes % 24.9 % (21.2-54.2); Mean Corpuscular Hemoglobin 30 PG (27-34); Mean Corpuscular Volume 88.6 FL (87-102); Mean Platelet Volume 10.9 FL (9.6-12.0); Monocytes # 0.7 10*3/uL (0.11-0.8); Monocytes % 10.2 % (1.7-12.7); Neutrophils # 3.8 10*3/uL (1.4-7.4); Neutrophils % 56.9 % (38.7-73.9); Platelet Count 191 T/CUMM (130-400); Red Blood Count 2.89 MC/CUMM (3.8-5.5); Red Cell Distribution Width 14.1 % (9.3-17.3); White Blood Count 6.8 T/CUMM (4-12)
[2017-08-07 05:26] LABS: Calcium 8.3 MG/DL (8.5-10.1); Magnesium 2.1 MG/DL (1.8-2.4); Osmolality,Calculated 291.5 MOS/KG (273-304); Potassium 4.1 MMOL/L (3.5-5.1)
--- NOTE | 2017-08-07 08:25 | Nephrology Progress Note ---
Nephrology - PN: Subj Interval history: Patient denies shortness of breath. Review of systems GI-patient states he noticed some blood in his bowel movements yesterday he has not had a bowel movement today Physical exam general the patient is in no acute distress, he has no pitting edema Assessment/plan 1. End-stage renal disease-we will continue hemodialysis support 2. GI bleed-patient had a nuclear medicine bleeding scan yesterday this was negative 3. Hypertension this is controlled 4. Diabetes mellitus this is controlled 5. Anemia-patient's hematocrit stable around 26% the past couple of days Exam (PN)-Nephrology - Vital Signs Vital signs: Period Temp Pulse Resp BP Sys/Moss Pulse Ox Last 24 Hr 97.6 F-98.7 F 92-102 18-20 114-132/67-83 97-98 - Lab 08/07/17 03:46 08/07/17 03:46 Most recent lab results Calcium 8.3 MG/DL (8.5-10.1) L 08/07/17 03:46 Magnesium 2.1 MG/DL (1.8-2.4) 08/07/17 03:46
[2017-08-07] MEDS: INSULIN LISPRO 100 UNIT/ML SUBCUT SCH ×4 (08:43→21:16)
[2017-08-07] MEDS: PANTOPRAZOLE 40 MG TABLET PO SCH ×2 (08:44→21:12)
[2017-08-07] MEDS: MAGNESIUM CHLORIDE 64 MG TABLET PO SCH (08:44)
[2017-08-07] MEDS: TORSEMIDE 20 MG TABLET PO SCH (08:44)
[2017-08-07] MEDS: GABAPENTIN 600 MG TABLET PO SCH ×3 (08:44→21:12)
--- NOTE | 2017-08-07 10:58 | Hospitalist Progress Note ---
Assessment and Plan (1) Erosive gastritis with hemorrhage Status: Acute Assessment and plan: Bleeding scan showed no scintigraphic evidence of acute GI bleed.GI is following. Patient denies any bleeding episode today though he had one yesterday. Plan Continue conservative management. possible dc in am GI will do outpt colonoscopy Current Visit: Yes (2) Acute posthemorrhagic anemia Status: Acute Assessment and plan: s/p transfusion.H/H is stable. Current Visit: Yes (3) Gastroparesis Status: Chronic Assessment and plan: Treatment of his gastroparesis is being avoided,as long as he is maintaining his weight due to the fact that the motility enhancement would worsen his diarrhea. Current Visit: No (4) Diarrhea Status: Acute Assessment and plan: slowly improving. Current Visit: Yes Hospitalist: Subjective Interval history: Patient seen this am.He has not had any bloody stool today. Bleeding scan showed no scintigraphic evidence of acute GI bleed. Exam - Constitutional Vitals: Period Temp Pulse Resp BP Sys/Moss Pulse Ox Last 24 Hr 97.2 F-98.7 F 96-102 18-20 114-134/67-84 95-98 General appearance: no acute distress - Head Head exam: Present: normal inspection - Eye Eye exam: Present: EOMI - Respiratory Respiratory exam: Present: clear to auscultation bilaterally - Cardiovascular Cardiovascular exam: Present: regular rate and rhythm - GI/Abdominal GI/Abdominal exam: Present: normal bowel sounds - Extremities Exam Extremities exam: Present: normal inspection Results - Labs CBC & BMP: 08/07/17 03:46 08/07/17 03:46 Lab Results: I have reviewed the past 24 hour labs
[2017-08-07] MEDS: INSULIN GLARGINE 100 UNIT/ML SUBCUT SCH (21:16)
[2017-08-08 05:37] LABS: Basophils # 0.1 10*3/uL (0.0-0.2); Basophils % 1.2 % (0.0-0.8); Eosinophils # 0.5 10*3/uL (0.0-0.87); Eosinophils % 7.8 % (0.00-10.9); Hematocrit 25.5 VOL% (42.0-52.0); Hemoglobin 8.9 GM/DL (14.0-18.0); Immature Granulocytes % 0.6 %; Immature Granulocytes Absolute 0.04 #; Lymphocytes # 1.5 10*3/uL (1.4-4.0); Lymphocytes % 23.4 % (21.2-54.2); Mean Corpuscular HGB Conc 34.9 GM/DL (32-36); Mean Corpuscular Hemoglobin 31 PG (27-34); Mean Corpuscular Volume 89.2 FL (87-102); Mean Platelet Volume 10.4 FL (9.6-12.0); Monocytes # 0.6 10*3/uL (0.11-0.8); Monocytes % 9.6 % (1.7-12.7); Neutrophils # 3.7 10*3/uL (1.4-7.4); Neutrophils % 57.4 % (38.7-73.9); Platelet Count 185 T/CUMM (130-400); Red Blood Count 2.86 MC/CUMM (3.8-5.5); White Blood Count 6.5 T/CUMM (4-12)
[2017-08-08 06:12] LABS: Calcium 8.2 MG/DL (8.5-10.1); Osmolality,Calculated 285.4 MOS/KG (273-304); Potassium 3.8 MMOL/L (3.5-5.1)
[2017-08-08] MEDS: INSULIN LISPRO 100 UNIT/ML SUBCUT SCH ×2 (07:41→12:19)
--- NOTE | 2017-08-08 07:48 | Nephrology Progress Note ---
Nephrology - PN: Subj Interval history: Patient denies shortness of breath. Review of systems GI he had some blood in his bowel movement 2 days ago he has not had a bowel movement since Physical exam general the patient is in no acute distress Assessment/plan 1. End-stage renal disease 2. GI bleed-patient's hematocrit is stable around 25-26% 3. Hypertension 4. Diabetes mellitus Exam (PN)-Nephrology - Vital Signs Vital signs: Period Temp Pulse Resp BP Sys/Moss Pulse Ox Last 24 Hr 97.2 F-98.8 F 95-109 14-20 133-179/71-89 93-99 - Lab 08/08/17 05:20 08/08/17 05:20 Most recent lab results Calcium 8.2 MG/DL (8.5-10.1) L 08/08/17 05:20 Magnesium 2.1 MG/DL (1.8-2.4) 08/07/17 03:46
[2017-08-08] MEDS: TORSEMIDE 20 MG TABLET PO SCH (08:40)
[2017-08-08] MEDS: GABAPENTIN 600 MG TABLET PO SCH (08:40)
[2017-08-08] MEDS: PANTOPRAZOLE 40 MG TABLET PO SCH (08:41)
[2017-08-08] MEDS: MAGNESIUM CHLORIDE 64 MG TABLET PO SCH (08:41)
--- NOTE | 2017-08-08 09:49 | Gastrointestinal Progress Note ---
Assessment and Plan - Time spent with patient Time spent with patient: Greater than 30 minutes (1) Erosive gastritis with hemorrhage Status: Acute Current Visit: Yes (2) Other specified counseling Status: Acute Current Visit: Yes Exam (Progress Note) - Constitutional Vitals: Period Temp Pulse Resp BP Sys/Moss Pulse Ox Last 24 Hr 98.4 F-98.8 F 95-109 14-20 133-179/71-92 93-99 Results - Labs CBC & BMP: 08/08/17 05:20 08/08/17 05:20 Specialty Discharge - Follow Up or Referrals Follow up with: [facility] [Other] - 1 Week (Follow-up one week with an H&H) Connor Townsend MD [Physician] - (Call his office if continues to bleed. Otherwise follow-up in 6 weeks) Note Addendum: PLEASE NOTE -- automatic citation of patient information is unavoidable in this electronic note. I have made a reasonable effort to review the information cited , but it is not a part of my evaluation, impression, or recommendation unless specifically discussed in the dictated text that follows. As well, voice recognition software was used in the creation of this clinical note. Reasonable effort was made to identify and correct gross errors. Despite proofreading, errors in hoe runner may be present, including nonsense verbiage at times. If you encounter such an error, please contact me at for discussion and correction. -- Hernan Chief complaint: dark stool, anemia Subjective: the patient is a 51-year-old male seen for follow-up of erosive gastritis with anemia. Patient has received two units of packed red blood cells during the admission, most recently on the . Blood counts have remained stable. Patient reports feeling well with no abdominal pain. He is eating and drinking comfortably. Medications: Tylenol, albuterol, Duoneb, Norvasc, Neurontin, glucagon, heparin, [place], Lantus, Humalog, magnesium chloride, Zofran, Protonix, demo decks Review of Symptoms: 12 point review of symptoms was negative except as noted above Physical examination: Vital Signs: Current vital signs reviewed. General Appearance: well-appearing. Not acutely ill. Head: Normocephalic. Eyes: no scleral icterus. No scleral injection. No conjunctival pallor. Oral Cavity: Odor of breath was normal. No drooling was observed. Lips showed no abnormalities. Lungs: Respiration rhythm and depth was normal. Cardiovascular: Heart rate and rhythm were normal. Abdomen: abdomen was not distended. Abdominal auscultation revealed no abnormalities. Ascites was not discovered. Abdominal palpation revealed no tenderness and no hepatosplenomegaly. Musculoskeletal System: musculoskeletal system was grossly normal. Neurological: level of consciousness was normal. Speech was normal. No coordination/cerebellum abnormalities were noted. Skin: Gen. appearance was normal. Color and pigmentation were normal. No skin lesions were appreciated. Laboratory: hemoglobin 8.9, hematocrit 26, MCV 89 Radiology: G.I. bleeding scan, 08/06/17 -- no sin to graphic evidence of acute gastrointestinal bleeding Impressions: #1. Erosive gastritis with hemorrhage -- the patient is tolerating proton pump inhibitor and is eating and drinking comfortably. Blood counts have remained stable. I recommend continued Protonix twice daily and agree with Dr. Townsend that he should remain off antiplatelet agents for a brief period in order to allow healing of gastritis. #2. Other specified counseling -- Patient seen for greater than 30 minutes. Greater than 50% of this time was spent counseling regarding differential diagnosis, likely diagnosis,, diagnostic and therapeutic options, risks, benefits, and alternatives to procedures and medications, informed consent, and plan of care generally. Patient has expressed understanding and wishes to proceed. Recommendations: -- continue volume management -- monitor blood counts and transfuse as indicated -- continue twice daily proton pump inhibitor -- hold Plavix for a few more days -- we will continue to follow with you. Dr. Townsend will resume G.I. care for this patient tomorrow
--- NOTE | 2017-08-08 10:55 | Discharge Summary ---
<Gali Moya Oscar - Last Filed: 08/08/17 10:47> Hospital Course - Hospital Course Hospital Course: 51-year-old -[place] male with history of hypertension, ESRD on HD, diabetes, GERD, COPD, CAD with stents in 2012, and gastric ulcer admitted by the hospitalist on 08/04/2017 with acute GI bleeding. Patient did receive a total of [address] Townsend was consulted. Patient had multiple episodes of erosive gastritis with melena and he recommends Protonix twice daily and avoid Plavix for at least one week. Patient does have diarrhea as well but Dr. Townsend wants to hold off on scoping for another 6 weeks if possible. He is also avoiding treatment of his gastroparesis due to the fact that it would worsen his diarrhea. Patient is now had no further GI bleeding for 48 hours. His H&H's are staying stable today at 8.9/25.5. Nephrology did also follow the patient for his dialysis needs. Patient was put on Plavix due to stenting in 2012 so with his history of GI bleeding recommend holding Plavix for good. Patient has denied a bleeding episode in the last 24hrs. He feels comfortable going home today.Patient is reached maximal hospital benefit. He will follow-up with Dr. Townsend in 6 weeks for outpatient C scope and will have him follow-up with Dr. Ivey his primary care physician in 1 week with an H&H. Complete discharge instructions were given to the patient. Care coordination , chart review, completed discharge paperwork took approximately 38 minutes. - Time spent with patient Time with patient DS: Greater than 30 minutes Diagnosis - Discharge Diagnosis (1) Gastroparesis Status: Chronic (2) Diabetes Status: Chronic (3) COPD (chronic obstructive pulmonary disease) Status: Chronic (4) Coronary artery disease Status: Chronic (5) Anemia Status: Resolved (6) Acute GI bleeding Status: Resolved Specialty Discharge - Follow Up or Referrals Follow up with: [facility] [Other] - 1 Week (Follow-up one week with an H&H) Connor Townsend MD [Physician] - (Call his office if continues to bleed. Otherwise follow-up in 6 weeks) Discharge Plan - Discharge Data Disposition: Disch To Home/Self Care Condition at Discharge: Stable Discharge Diet: heart healthy Activity: resume usual activities as tolerated Contact your physician if you experience:: Nausea/Vomiting, Bleeding - Discharge Medications New Pantoprazole Tab [Protonix Tab] 40 mg PO BID #60 tablet Continue Ergocalciferol (Vitamin D2) [Vitamin D2] 50,000 unit PO MOFR Torsemide 10 mg PO QAM amLODIPine [Norvasc] 10 mg PO QAM Carvedilol 12.5 mg PO BID W/MEALS Gabapentin 600 mg PO TID Hydrocodone/Acetaminophen [Belton 10-325 Tablet] 1 each PO BID Insulin Detemir [Levemir] 20 unit SUBCUT BEDTIME Albuterol Sulfate [Ventolin HFA] 2 puffs INH Q4H PRN PRN Reason: Shortness Of Breath/Wheezing Rosuvastatin Calcium 10 mg PO QAM Magnesium Chloride [Slow Mag] 64 mg PO QAM Furosemide 40 mg PO TID Discontinued Omeprazole 20 mg PO QAM Clopidogrel Bisulfate [Clopidogrel] 75 mg PO QAM - Follow Up or Referral Follow Up: Connor Townsend MD [Physician] - (Call his office if continues to bleed. Otherwise follow-up in 6 weeks) [facility] [Other] - 1 Week (Follow-up one week with an H&H) - Forms/Instructions Instructions: Gastrointestinal Bleeding (DC) Exam - Constitutional Vitals: Period Temp Pulse Resp BP Sys/Moss Pulse Ox Last 24 Hr 98.4 F-98.8 F 95-109 14-20 133-179/71-92 93-99 Exam: 51-year-old -[place] male, no acute distress, alert and oriented Chest clear CV regular rate and rhythm Abdomen soft nontender Extremities no edema Discharge Results Procedures and tests throughout hospitalization: Pending Orders 08/04/17 15:13 Blood Culture Stat 08/05/17 Red Blood Cells Leuko Red Routine Labs on day of discharge: Labs from last 24 hours 08/08/17 08/08/17 08/08/17 07:08 05:20 05:20 WBC 6.5 RBC 2.86 L Hgb 8.9 L Hct 25.5 L MCV 89.2 MCH 31 MCHC 34.9 RDW 14.0 Plt Count 185 MPV 10.4 Neut % (Auto) 57.4 Lymph % (Auto) 23.4 Shelby % (Auto) 9.6 Eos % (Auto) 7.8 Baso % (Auto) 1.2 H Neut # (Auto) 3.7 Lymph # (Auto) 1.5 Shelby # (Auto) 0.6 Eos # (Auto) 0.5 Baso # (Auto) 0.1 Immature Gran % 0.6 Nucleated RBC % 0.0 Immature Gran # 0.04 Nucleated RBCs # 0.00 Immature Plt Fraction 0.0 Sodium 140 Potassium 3.8 Chloride 103 Carbon Dioxide 29 Anion Gap 11.8 BUN 33 H Creatinine 4.30 H GFR Calculation 18 BUN/Creatinine Ratio 7.00 Glucose 105 POC Glucose 95 Calculated Osmolality 285.4 Calcium 8.2 L 08/07/17 08/07/17 08/07/17 20:27 15:45 14:13 WBC RBC Hgb Hct MCV MCH MCHC RDW Plt Count MPV Neut % (Auto) Lymph % (Auto) Shelby % (Auto) Eos % (Auto) Baso % (Auto) Neut # (Auto) Lymph # (Auto) Shelby # (Auto) Eos # (Auto) Baso # (Auto) Immature Gran % Nucleated RBC % Immature Gran # Nucleated RBCs # Immature Plt Fraction Sodium Potassium Chloride Carbon Dioxide Anion Gap BUN Creatinine GFR Calculation BUN/Creatinine Ratio Glucose POC Glucose 173 H 235 H 147 H Calculated Osmolality Calcium Preliminary micro results at discharge 08/04/17 15:13 Blood Culture - Preliminary Blood No growth at 3 days 08/04/17 15:13 Blood Culture - Preliminary Blood No growth at 3 days DS: Provider Date of admission: 08/04/17 14:10 Primary care physician: . No PCP Attending physician on admission: Keturah Serra MD Consults: 08/04/17 14:48 Consult to Physician [CONS] Routine Comment: patient of Dr Gutierrez Consulting Provider: Yusuf Hughes Consulting Provider Notified: Yes When should Consulting Provider be notified: Now Consult to Specialist Group: Nephrology When should Consulting Provider be notified: Now Person Notified: WILL Date Notified: 08/05/17 Time Notified: 09:30 Consult Notification Comment: Dialysis scheduled for today in [place] but missed it related to increasing SOB and has a H&H 5.4 & 16.5 08/04/17 15:02 Consult to Physician [CONS] Routine Comment: melena, hematemsis Consulting Provider: Connor Townsend Consulting Provider Notified: Yes When should Consulting Provider be notified: Now Consult to Specialist Group: Gastroenterology When should Consulting Provider be notified: Now Person Notified: MIRI Date Notified: 08/05/17 Time Notified: 09:56 Consult Notification Comment: H&H 5.4 & 16.5 CRF - missed dialysis today (Renal is consulted) He reports Dr Cary fitzgerald about a year ago and found ulcer Thank You 08/04/17 15:11 Consult to Case Mgmt/Social Srvs [CONS] Routine Reason for Case Mgmt/Social Srvs: Discharge Planning Discharging clinician: STEPHEN Chavez Expected date of discharge: 08/08/17 <Mary Sanchez - Last Filed: 08/08/17 11:36> Hospital Course - Time spent with patient Time with patient DS: Greater than 30 minutes Diagnosis - Discharge Diagnosis (1) Erosive gastritis with hemorrhage Status: Acute (2) Acute posthemorrhagic anemia Status: Acute (3) Gastroparesis Status: Chronic (4) Diarrhea Status: Acute Exam - Constitutional General appearance: no acute distress - Head Head exam: Present: normal inspection - Respiratory Respiratory exam: Present: clear to auscultation bilaterally - Cardiovascular Cardiovascular exam: Present: regular rate and rhythm - GI/Abdominal GI/Abdominal exam: Present: normal bowel sounds - Extremities Exam Extremities exam: Present: normal inspection
[2017-08-08 13:01] VITALS: BP 142/87
[2017-08-08] MEDS ORDERED: INFLUENZA VIRUS VACCINE 0.5 ML SYRINGE IM ONE (13:03)
== END 2017-08-08 12:30 | disposition home or self-care (01) | DRG 377 ==
LOC: EDBD → EDUNIT# → N.ED 12:27 → N.EDINP 14:10 → SUATTDRO 14:10 → N.EDINP 15:40 → N.4E 15:55
PROVIDERS: ADMIT Internal Medicine; ATTEND Internal Medicine